=== PATIENT | male | born 1995 | race American Indian/Alaskan Native ===

== ENCOUNTER 2022-02-07 12:00 | Emergency (ER) | payer MEDICAID ==
[2022-02-07] MEDS ORDERED: Sodium Chloride 0.9% 10 ML Syringe FLUSH PRN (12:01)
[2022-02-07] MEDS ORDERED: Ondansetron 4 MG/2 ML SDV IVPUSH STA (12:03)
[2022-02-07] MEDS ORDERED: Ketorolac 30 MG/ML SDV IVPUSH STA (12:03)
[2022-02-07] MEDS ORDERED: Sodium Chloride 0.9% 1,000 ML IV SCH (12:15)
[2022-02-07 12:28] LABS: ESTIMATED GFR 107 mL/min (>60)
== END 2022-02-07 14:54 | disposition home or self-care (01) ==
LOC: FB.ED 12:00
DX: K52.9 Noninfective gastroenteritis and colitis, unspecified (principal); R07.89 Other chest pain; E86.0 Dehydration; Z20.822 Contact with and (suspected) exposure to COVID-19; Z79.899 Other long term (current) drug therapy
CPT/HCPCS: 36415; 71045; 80053; 84484; 85025; 87635; 93005; 96361; 96374; 96375; 99285; J1885; J2405; J7030; 93010; 99282; U0002

== ENCOUNTER 2023-10-06 11:54 | Emergency (ER) | payer MEDICAID ==
[2023-10-06 13:20] LABS: BILIRUBIN,URINE NEGATIVE (NEGATIVE); GLUCOSE,URINE NORMAL (NORMAL); KETONES,URINE NEGATIVE (NEGATIVE); LEUKOCYTE ESTERASE,URINE NEGATIVE (NEGATIVE); NITRITE,URINE NEGATIVE (NEGATIVE); OCCULT BLOOD,URINE NEGATIVE (NEGATIVE); PROTEIN,URINE NEGATIVE (NEGATIVE); UROBILINOGEN,URINE NORMAL (NEGATIVE)
[2023-10-06 13:24] LABS: COLOR,URINE YELLOW (YELLOW)
[2023-10-06 13:25] LABS: APPEARANCE,URINE CLEAR (CLEAR); BACTERIA,URINE RARE (NS); SQUAMOUS EPITHELIAL CELLS,UR RARE (NS,R,O)
[2023-10-06] MEDS: Ondansetron 4 MG Tab.DIS PO ONE (13:45)
[2023-10-06] MEDS: Diphtheria,Pertussis(Acell),Tetanus Vaccine 0.5 ML Syringe IM ONE (13:45)
== END 2023-10-06 14:47 | disposition home or self-care (01) ==
LOC: FB.ED 11:54
DX: S06.0X1A Concussion with loss of consciousness of 30 minutes or less, initial encounter (principal); S00.03XA Contusion of scalp, initial encounter; R03.0 Elevated blood-pressure reading, without diagnosis of hypertension; Z79.899 Other long term (current) drug therapy; Z23 Encounter for immunization; Z86.16 Personal history of COVID-19; F17.210 Nicotine dependence, cigarettes, uncomplicated; W10.8XXA Fall (on) (from) other stairs and steps, initial encounter
CPT/HCPCS: 70450; 72125; 81001; 90471; 90715; 99284-25; Q0162

== ENCOUNTER 2024-03-16 16:02 | Emergency (ER) | payer BC, MEDICAID ==
[2024-03-16 16:59] LABS: INFLUENZA A NAA NEGATIVE (NEGATIVE); INFLUENZA B NAA NEGATIVE (NEGATIVE); RESPIRATORY SYNCYTIAL VIR NAA NEGATIVE (NEGATIVE)
[2024-03-16 17:05] LABS: CORONAVIRUS COVID-19 NAA NEGATIVE (NEGATIVE)
== END 2024-03-16 18:00 | disposition home or self-care (01) ==
LOC: FB.ED 16:02
DX: J06.9 Acute upper respiratory infection, unspecified (principal); B97.89 Other viral agents as the cause of diseases classified elsewhere; Z86.16 Personal history of COVID-19; F17.210 Nicotine dependence, cigarettes, uncomplicated; J45.909 Unspecified asthma, uncomplicated
CPT/HCPCS: 0241U; 99283; 99284

== ENCOUNTER 2024-07-01 15:57 | Emergency (ER) | payer SELFPAY ==
[2024-07-01] MEDS: Ketorolac 30 MG/ML SDV IM ONE (16:38)
== END 2024-07-01 16:46 | disposition home or self-care (01) ==
LOC: FB.ED 15:57
DX: G89.11 Acute pain due to trauma (principal); M54.6 Pain in thoracic spine; Z91.013 Allergy to seafood; Z79.899 Other long term (current) drug therapy; Z86.16 Personal history of COVID-19
CPT/HCPCS: 96372; 99283; J1885